=== PATIENT | female | born 1995 | race Caucasian/White ===

== ENCOUNTER 2023-04-29 09:06 | Outpatient (CLI) | payer OTHER, SELFPAY ==
--- NOTE | 2023-04-29 09:15 | CRLHL7_ITS ---
For Patients: As a result of the Century Cures Act, medical imaging exams and procedure reports are released immediately into your electronic medical record. You may view this report before your referring provider. If you have questions, please contact your health care provider. INDICATION: First trimester scan, establish dates. COMPARISON: None. TECHNIQUE: Real-time rodriguez-scale imaging of the pelvis was performed. FINDINGS: Sonographic imaging demonstrates a single living intrauterine gestation. The embryo demonstrates a regular cardiac rate measuring 169 beats per minute. The embryo`s crown-rump length measurement of 2.0 cm corresponds to a gestational age of 8 weeks 5 days with a sonographic due date of 12/04/2023. There is a normal-appearing yolk sac. There are no gross abnormalities noted within the embryo at this early state of development. The gestational sac has a normal appearance. There is no evidence of a perigestational hemorrhage. The amount of fluid within the sac appears appropriate for gestational age. The cervix is closed. The myometrium appears normal. The ovaries are of normal size. Corpus luteal cyst right ovary measuring 1.4 cm. There are no suspicious fluid collections noted in the cul-de-sac. IMPRESSION: Normal first trimester OB ultrasound exam. Gestational age calculated at 8 weeks 5 days with a sonographic due date of 12/04/2023. Dictated by Raimundo Villalta MD @ 04/29/2023 10:36:30 AM (Electronically Signed)
== END 2023-04-29 09:07 | disposition home or self-care (01) ==
PROVIDERS: Visit Provider Advanced Practice Midwife
DX: Z34.91 Encounter for supervision of normal pregnancy, unspecified, first trimester (principal); Z3A.08 8 weeks gestation of pregnancy
CPT/HCPCS: 76817

== ENCOUNTER 2023-04-29 10:34 | Outpatient (CLI) | payer OTHER, SELFPAY ==
[2023-04-29 16:17] LABS: Chlamydia DNA Amplified* NOT DETECTED (No Detected); GC DNA Amplified* NOT DETECTED (No Detected)
== END 2023-04-29 10:35 | disposition home or self-care (01) ==
PROVIDERS: Visit Provider Advanced Practice Midwife
DX: Z34.91 Encounter for supervision of normal pregnancy, unspecified, first trimester (principal); Z3A.08 8 weeks gestation of pregnancy
CPT/HCPCS: 86592; 86703; 86704; 86706; 86762; 86787; 86803; 86850; 86900; 86901; 87086; 87186; 87340; 87491; 87591

== ENCOUNTER 2023-07-20 12:55 | Outpatient (CLI) | payer OTHER, SELFPAY ==
--- NOTE | 2023-07-20 13:00 | US_ITS ---
Patient: SMITHA KUMAR Facility:?[facility] Patient ID:?[id number] Site Patient ID:?[id number]. Site :?[id number] Study:?US-OB Pelvis anatomy-07/20/2023 2:08:57 PM Ordering Physician:FELICITA Final Report: INDICATION: Evaluate anatomy. COMPARISON: none TECHNIQUE: Real time rodriguez scale imaging of the fetus was performed as well as color Doppler analysis of the umbilical vessels. FINDINGS: Sonographic imaging demonstrates a single living intrauterine gestation. Fetus demonstrates a regular cardiac rate of 150 beats per minute. Fetus has a zuhair breech position. The placenta lies posterior fundal without evidence of placenta previa. Placental edge is 6.8 cm from the internal cervical os. Amniotic fluid volume appears normal. Single deepest vertical pocket: 5.2 cm. The cervix is closed and measures 3.9 cm in length. The composite ultrasound gestational age is calculated at 20 weeks 4 days with an estimated sonographic due date of 12/03/2023. The estimated weight is 389 grams which lies at the 87th %. The following biometric measurements were obtained: Biparietal diameter: 4.5 cm/19 weeks 3 days 23rd% Head circumference: 17.7 cm/20 weeks 1 day 44th% Abdominal circumference: 16.1 cm/21 weeks 1 day 78th% Femur length: 3.5 cm/21 weeks 0 days 72nd% The HC/AC ratio measures: 1.10 range (1.07-1.25) On anatomic survey, there is a normal appearance of the cerebral ventricles, cavum septi pellucidi, cisterna magna and cerebellum. The nose, lips, and facial profile appear normal. The cervical, thoracic and lumbar spine are well visualized and appear normal. There is a normal four-chamber heart view and the left and right ventricular outflow tracts appear normal. The diaphragm and stomach appear normal. The kidneys and bladder also appear normal. There is a normal three-vessel cord and cord insertion site. The four extremities appear normal. IMPRESSION: Normal OB ultrasound exam with concordance of clinical and sonographic dating. No intrinsic abnormalities noted on anatomic survey. Dictated by Raimundo Villalta MD @ 07/21/2023 9:32:39 AM Signed by:?Raimundo Villalta MD @07/21/2023 9:32:39 AM (Electronic Signature)
== END 2023-07-20 12:56 | disposition home or self-care (01) ==
LOC: US 12:55
PROVIDERS: Visit Provider Obstetrics & Gynecology
DX: Z34.92 Encounter for supervision of normal pregnancy, unspecified, second trimester (principal); Z3A.20 20 weeks gestation of pregnancy
CPT/HCPCS: 76805

== ENCOUNTER 2023-09-13 13:52 | Outpatient (CLI) | payer MEDICAID, SELFPAY | END 2023-09-13 13:53 | disposition home or self-care (01) | LOC: NFLDREF 09-29 11:10 | PROVIDERS: Visit Provider Obstetrics & Gynecology | DX: Z34.93 Encounter for supervision of normal pregnancy, unspecified, third trimester (principal); Z3A.28 28 weeks gestation of pregnancy | CPT/HCPCS: 86592 ==

== ENCOUNTER 2023-09-27 13:55 | Outpatient (CLI) | payer MEDICAID, SELFPAY ==
--- NOTE | 2023-09-27 14:00 | CRLHL7_ITS ---
For Patients: As a result of the Century Cures Act, medical imaging exams and procedure reports are released immediately into your electronic medical record. You may view this report before your referring provider. If you have questions, please contact your health care provider. OB ULTRASOUND ANDREA by LMP: 12/06/2023. GA: 30w, 0d. Single. INDICATION: Uterine size-date discrepancy. COMPARISON: 07/20/2023. CERVIX: Not visualized. POSITIONING: Vertex. AMNIOTIC FLUID: 3.9 cm. PLACENTA: Technique: Transabdominal. PLACENTA POSITION: Anterior. DOPPLER: heart rate: 165 bpm. Biometry: BPD: 76 cm. 30 w, 3 d, 50%. HC: 27.5 cm. 30 w, 0 d, 17%. AC: 25.7 cm. 29 w, 6 d, 40%. FL: 5.9 cm. 30 w, 5 d, 57%. FL/AC ratio: 22.96 percent. HC/AC ratio: 1.07. EFW: 1533 g. Weight: 3 lbs, 6 oz. age by this US: 30 w, 2 d. ANDREA by this US: 12/04/2023. Percentile by ANDREA: 44%. IMPRESSION: Measurements are consistent with dates. Good interval growth since the prior exam. Aashish Goins M.D. Body/Diagnostic Radiologist [email or web address] DWAYNE/ruth miranda/Dictated by: Aashish Goins MD @ 09/28/2023 9:34:00 AM (Electronically Signed)
== END 2023-09-27 13:56 | disposition home or self-care (01) ==
PROVIDERS: Visit Provider Obstetrics & Gynecology
DX: O26.843 Uterine size-date discrepancy, third trimester (principal); Z3A.30 30 weeks gestation of pregnancy
CPT/HCPCS: 76816

== ENCOUNTER 2023-10-25 14:18 | Outpatient (CLI) | payer MEDICAID, SELFPAY | END 2023-10-25 14:19 | disposition home or self-care (01) | LOC: NFLDREF 10-28 08:46 | PROVIDERS: Visit Provider Obstetrics & Gynecology | DX: Z34.93 Encounter for supervision of normal pregnancy, unspecified, third trimester (principal); O99.013 Anemia complicating pregnancy, third trimester; Z3A.34 34 weeks gestation of pregnancy | CPT/HCPCS: 82728 ==

== ENCOUNTER 2023-11-10 10:20 | Outpatient (CLI) | payer MEDICAID, SELFPAY ==
[2023-11-11 12:56] LABS: Strep B DNA Probe Negative (Negative)
[2023-11-11 12:59] LABS: Strep B Susceptibility Needed? No
== END 2023-11-10 10:21 | disposition home or self-care (01) ==
LOC: NFLDREF 10:20
PROVIDERS: Visit Provider Obstetrics & Gynecology
DX: Z34.93 Encounter for supervision of normal pregnancy, unspecified, third trimester (principal); Z3A.36 36 weeks gestation of pregnancy
CPT/HCPCS: 87081; 87653

== ENCOUNTER 2023-11-22 13:30 | Outpatient (RCR) | payer MEDICAID, SELFPAY ==
--- NOTE | 2023-11-01 11:38 | PC.NURSE ---
Diagnosis: MATILDE of
--- NOTE | 2023-11-01 12:00 | URNOTE ---
Prior auth is not required for Yenny ([id number]) per [facility] fee schedule.
[2023-11-08 11:23] VITALS: BP 123/74; PULSE 111; RESP 16; TEMP 36.6; O2SAT 97
[2023-11-08] MEDS: IRON SUCROSE COMPLEX 200 MG in 0.9 % SODIUM CHLORIDE 100 ml 100 ML 440 MG IVPB (12:00)
[2023-11-08] MEDS: 0.9 % SODIUM CHLORIDE 250 ml IV (12:03)
[2023-11-08] MEDS: SODIUM CHLORIDE 0.9 % (FLUSH) 10 ML SYRINGE IVF (12:04)
[2023-11-08 12:20] VITALS: BP 107/59; PULSE 103; RESP 16; TEMP 36.6; O2SAT 97
[2023-11-08 12:45] VITALS: BP 119/69; PULSE 94; RESP 16; TEMP 36.7; O2SAT 97
[2023-11-11 13:35] VITALS: BP 107/71; PULSE 97; RESP 16; TEMP 36.3; O2SAT 97
[2023-11-11] MEDS: SODIUM CHLORIDE 0.9 % (FLUSH) 10 ML SYRINGE IVF (13:42)
[2023-11-11] MEDS: 0.9 % SODIUM CHLORIDE 250 ml IV (13:44)
[2023-11-11] MEDS: IRON SUCROSE COMPLEX 200 MG in 0.9 % SODIUM CHLORIDE 100 ml 100 ML 440 MG IVPB (13:53)
[2023-11-11 14:10] VITALS: BP 108/69; PULSE 90; RESP 16; O2SAT 97
[2023-11-11 14:40] VITALS: BP 118/75; PULSE 89; RESP 16; TEMP 36.4; O2SAT 97
[2023-11-15 13:48] VITALS: BP 106/68; PULSE 99; RESP 16; TEMP 36.4; O2SAT 99
[2023-11-15] MEDS: IRON SUCROSE COMPLEX 200 MG in 0.9 % SODIUM CHLORIDE 100 ml 100 ML 440 MG IVPB (14:11)
[2023-11-15] MEDS: SODIUM CHLORIDE 0.9 % (FLUSH) 10 ML SYRINGE IVF (14:11)
[2023-11-15] MEDS: 0.9 % SODIUM CHLORIDE 250 ml IV (14:11)
[2023-11-15 14:53] VITALS: BP 100/66; PULSE 74; RESP 14; TEMP 36.1; O2SAT 100
[2023-11-18 11:47] VITALS: BP 111/68; PULSE 95; RESP 16; TEMP 36.2; O2SAT 97
[2023-11-18] MEDS: IRON SUCROSE COMPLEX 200 MG in 0.9 % SODIUM CHLORIDE 100 ml 100 ML 440 MG IVPB (12:11)
[2023-11-18] MEDS: SODIUM CHLORIDE 0.9 % (FLUSH) 10 ML SYRINGE IVF (12:11)
[2023-11-18] MEDS: 0.9 % SODIUM CHLORIDE 250 ml IV (12:11)
[2023-11-18 12:26] VITALS: BP 110/66; PULSE 92; RESP 14; TEMP 36.4; O2SAT 99
[2023-11-18 13:00] VITALS: BP 99/64; PULSE 92; RESP 16; TEMP 37.2; O2SAT 97
[2023-11-22 13:44] VITALS: BP 119/73; PULSE 114; RESP 16; TEMP 36.6; O2SAT 97
[2023-11-22] MEDS: SODIUM CHLORIDE 0.9 % (FLUSH) 10 ML SYRINGE IVF (14:14)
[2023-11-22] MEDS: IRON SUCROSE COMPLEX 200 MG in 0.9 % SODIUM CHLORIDE 100 ml 100 ML 440 MG IVPB (14:14)
[2023-11-22] MEDS: 0.9 % SODIUM CHLORIDE 250 ml IV (14:14)
[2023-11-22 14:31] VITALS: BP 112/68; PULSE 95; RESP 18; TEMP 36.4; O2SAT 97
[2023-11-22 14:59] VITALS: BP 118/67; PULSE 95; RESP 16; TEMP 37; O2SAT 97
== END 2024-05-06 23:59 | disposition home or self-care (01) ==
LOC: CCIC 13:30
PROVIDERS: Visit Provider Clinical Nurse Specialist
DX: O99.019 Anemia complicating pregnancy, unspecified trimester (principal); D50.9 Iron deficiency anemia, unspecified
CPT/HCPCS: 96365; 96374; J1756; J7050

== ENCOUNTER 2023-11-26 14:15 | Inpatient (IN) | payer MEDICAID, SELFPAY ==
[2023-11-26] VITALS (26 sets, daily range): BP systolic 90–122; BP diastolic 51–70; PULSE 76–101; RESP 16–20; TEMP 36.3–36.8; O2SAT 97–100; BMI 33.2
--- NOTE | 2023-11-26 14:45 | P.LDBA_ITS ---
Subjective History of Present Illness Time Seen by Provider: 14:45 Date Seen: 11/26/23 Narrative: Patient is being admitted to Labor and Delivery for spontaneous labor. She is a 28 year old at 38.4 weeks gestation. Her full history and physical was dictated by Dr. Caro on 11/18/23. Please see this for details. Patient start having painful contractions around a couple of hours ago and also noted decreased movement. When she presented to the center, she was noted to be 5 cm dilated. Declined TOLAC and continues to desire bilateral salpingectomy at time of delivery. Specific Issues/Plans : Eliu # Asymptomatic bacteruria at NOB, treated # Anemia, 10.8 at 1st OB. * Repeat at 28 weeks: 10.3 * Begin ferrous sulfate 650 mg QOD. * Repeat at 34 weeks: 10.6. Ferritin: 6.1 * Iron infusions to be completed on 11/24/2023 # 2019, arrest of decent, OP & macrosomic (4082 grams at 39.6 weeks) * Likelihood of successful = 61.5% * Operative note available * Planning repeat with bilateral salpingectomy. Scheduled for 12/02/2023 # Undesired fertility. Considering salpingectomy. * Tubal consent form signed 09/13/23 Needs PP pap. Ultrasounds: 04/29/2023: 8 weeks, 5 days gestation with sonographic ANDREA 12/04/2023 07/20/2023: Normal anatomy on level 1 scan. Posterior fundal placenta without previa. Normal fluid. EFW 87%, AC 78% 09/27/23: EFW 44%, AC 40%, all growth parameters within normal ranges TDAP: 09/27/23 GBS negative 11/10/20[address] H[address] Caro 11/18/2023 OB - Problem Based A/P Additional Plan (1) Previous delivery affecting : Problem details: Repeat delivery scheduled Status: Acute (2) Anemia affecting : Status: Acute Plan - CS Consent The patient was consented for section and blood. She understands that the four main categories of risk include pain, bleeding, infection, and damage to surrounding structures. Intraoperative pain will be manage with spinal anesthesia or epidural anesthesia. She has a history of high spinal from her previous delivery. She is willing to the try another spinal for this surgery. If that those are not effective or not appropriate for the clinical situation, general anesthesia will be administered. Immediately postop, TAP b lock will be performed. Throughout her recovery course, she will have on PO pain medications such as ibuprofen, Tylenol, and oxycodone. Regarding infection, she understands that we will be delivering appropriate antibiotics, however that the risk of infection following section still is approximately 5%. She understands that though the risk is very low that there is always a risk of damage to the bladder, uterus, ovaries, fallopian tubes, bowels, ureters, or even the fetus. She understands that most injuries can be addressed at the time of surgery, however, such an injury may require additional surgeries to fix. She understands that a section carries a risk of bleeding, and that while this bleeding can be addressed with multiple medical and surgical modalities (including hysterectomy), that there is the possibility of needing a blood transfusion. She reports she would accept a blood transfusion understanding the risks of a 1/200,000 risk of Hepatitis and 1/2,000,000 risk of HIV as well as the risk of having an allergic reaction to the blood products. She further understands that this reaction is typically mild, however can be severe including respiratory distress and necessitating ICU-level care. Lastly, she understands that a section does increase risks for future pregnancies and deliveries including, but not limited to, the risk of uterine rupture or placenta accreta. - CBC and T&S drawn. - Plan: Will proceed with repeat delivery and bilateral salpingectomy NST: 140s bpm, moderate variability, multiple accelerations, few small variable decelerations that spontaneously resolve [place]: Q4 minutes contractions. OB Exam Physical Exam Vital signs: Temp Pulse BP Pulse Ox 98.2 F 99 122/68 98 11/26/23 13:59 11/26/23 13:59 11/26/23 13:59 11/26/23 13:58 Narrative: Physical exam: General: Mild distress during contractions. Psych: Alert and oriented x3, full affect HEENT: Normocephalic, atraumatic Lungs: Unlabored breathing in between contractions. Neuro: No focal deficit. Mentating appropriately Pelvic exam: Dry perineum. 5/90/-1. Bulging membrane.
[2023-11-26 14:54] LABS: Basophils Percent Auto 0.2 % (0.0-3.0); Eosinophils Percent Auto 1.3 % (0.0-7.0); Hematocrit 34.6 % (33.0-51.0); Hemoglobin* 10.9 gm/dL (12.0-16.0); Immature Granulocytes Pct Auto 0.9 %; Lymphocytes Percent Auto 20.2 % (20-44); Mean Corpuscular HGB Conc 32 gm/dL (32-36); Mean Corpuscular Hemoglobin 31 pg (26-34); Mean Corpuscular Volume 97 fL (80-100); Monocytes Percent Auto 10.4 % (0.0-11.0); Platelet Count* 336 K/uL (140-440); RDW Coefficient of Variation % 15.8 % (11.5-15.5); Red Blood Count 3.56 m/uL (4.00-5.20); White Blood Count* 13.69 K/uL (4.50-11.00)
[2023-11-26 15:00] LABS: Slide Review Reflex No
[2023-11-26] MEDS: CEFAZOLIN 2 GM INJ IVP (15:11)
--- NOTE | 2023-11-26 15:22 | P.ANES_ITS ---
Anesthesia Charges Start Date/Time Anesthesia Start Date: 11/26/23 Anesthesia Start Time: 15:01 Stop Date/Time Anesthesia Stop Date: 11/26/23 Anesthesia Stop Time: 16:54 Summary Emergency: UNDER TRIMMER
[2023-11-26 15:45] LABS: INR 0.99 (0.91-1.10); Prothrombin Time 13.7 Seconds
[2023-11-26 15:46] LABS: Partial Thromboplastin Time* 31 Seconds (23-33)
[2023-11-26 15:47] LABS: Fibrinogen* 353 mg/dL (200-450)
--- NOTE | 2023-11-26 17:16 | W.PM.NB ---
Nerve Block Nerve Block Time Seen by Provider: 16:50 Date Seen: 11/26/23 Type of block requested by surgeon for post-operative analgesia: TAP Side: bilateral Time out performed: Yes Verification of patient name: Yes Verification of date of : Yes Name of person performing procedure: CSathishJeb Continuous monitoring Was continuous monitoring of O2 sat, B/P, cardiac nurse specialist, recorded every 15 minutes?: Yes Procedure Checklist: sterile prep, needles and gloves Ultrasound guided. Images saved: Yes Medications given in 5ml increments after negative aspiration: Marcaine %: 0.25 mL: 30 Needle gauge: 21 and Exparel mL: 10 Needle gauge: 21 Patient tolerated procedure well: Yes Block Charges Block Charge (with Pro Fee): TAP Bilateral Use of Ultrasound Machine for Block: Yes- US Guidance/pain block
--- NOTE | 2023-11-26 17:42 | PM.OBPRCCS ---
Procedure Time Seen by Provider: 15:15 Date of procedure: 11/26/23 Pre-op diagnosis: 1. Spontaneous labor 2. History of delivery x 1 3. Declined TOLAC 4. Undesired fertility Post-op diagnosis: same Procedure Done: Global Will [facility] bill your pro fee for this procedure?: Yes Urine Output Comment: 300 cc. Clear throughout Procedure Description: DELIVERY BY SECTION Date of Service: 11/26/23 Delivery time: 1530 Summary: Admitted for spontaneous labor at 38.4w. Initial cervical exam in triage was /-1, bulging membrane with regular painful contractions. Repeat exam in the OR was /-1, bulging membrane. Of note, RN and HELP DESK SUPPORT SPECIALIST were concerned about patient's excessive bleeding during IV placement and during spinal anesthesia. HELP DESK SUPPORT SPECIALIST reported loss of 20-25 cc of blood from spinal needle. Coags were sent due to this. Hgb/plt: 10.9/336 INR: 0.99 APTT: 31 Fibrinogen: 353 Findings: Excessive bleeding with every layer during surgery. Fascia densely adhered to the rectus muscle. Dense adhesion omental adhesion to peritoneum. Normal appearing uterus, bilateral ovaries and tubes. Fetus low in the pelvis, direct OP. 8/9 Weight 3373 g. Primary Indication: 1. Spontaneous labor 2. History of delivery x 1 3. Declined TOLAC 4. Undesired fertility Procedures: 1. Repeat Lower uterine transverse section 2. Bilateral salpingectomy Specimens Removed: Placenta Bilateral fallopian tubes Surgeon: Kim Brandon MD Anesthesia: Spinal Report: Prophylactic antibiotic, 2 g of Ancef was given before patient was taken to OR. After arrival to the operating room patient was placed in the supine position with left lateral tilt after administration of spinal anesthesia. Laparotomy A pfannenstiel incision was made through the anterior abdominal wall with #10 scalpel approximately 2 cm above the pubic symphysis. The incision was extended sharply with the #10 scalpel through the subcutaneous tissue to the level of fascia. Patient had more bleeding than expected with skin and subcutaneous layer dissection. The fascia was entered sharply with a #10 scalpel (Pfannenstiel) in the midline and extended in semi-elliptical fashion with Ochoa scissor. The underlying muscles were dissected off the overlying fascia by grasping the superior aspect of fascia with two rc clamps and sharp dissection was used along the midline due to adhesions. The fascia was further from rectus muscle with Ochoa scissor and/or cautery. In similar fashion, the lower aspect of fascia was also grasped with two Rc clamps and both blunt and sharp dissection was used to separate fascia from rectus muscle. Fascia densely adhered to the rectus muscle. The rectus muscles were in the midline sharply with Emily's. The peritoneum was then entered sharply with Emily's and Metzenbaum. The peritoneal incision was then extended superiorly and inferiorly under direct visualization with care being taken to avoid bladder and bowel. Filmy intraabdominal adhesions. The peritoneal incision was enlarged sharply with electrocautery and bluntly by lateral traction from the surgeon's and assistant corporate secretary's hand. Les retractor was inserted into the abdomen. Delivery A bladder flap was developed by grasping with [place] forcep and enter with Metzenbaun scissor. Then sharp and blunt dissection with Metzenbaum scissor and fingers were performed. A low transverse hysterotomy was made then with #10 scalpel at old hysterotomy scar. Of note, patient had excessive bleeding due to large vessel at hysterotomy site with every swipe of the scalpel. Extended laterally and cephalad with fingers in a low transverse fashion with Manu Guillermo technique with care being taken to avoid injury to the fetus. The amniotic cavity (membrane) was then entered with spontaneous rupture of membrane, and the amniotic fluid was noted to be clear, fetus was delivered cephalic. With delivery of the baby, right uterine artery extension noted and clamped with ring forceps. Placenta was delivered spontaneously with steady traction on cord and manual separation of placenta from uterine wall. Closure Uterine cavity was cleaned after placental delivery with lap sponge x 2. The hysterotomy was closed in one layer with stitches using 0 vicryl with continuous locking stitches. Right O'leary stitch placed. There was 2 cm hematoma at the left uterine angle. Ehaawm-gn-nosfl placed on hematoma. Hemostasis was achieved as needed with electrocautery. Xochilt applied at the hysterotomy x 2. The ovaries/tubes/uterine surface were evaluated. They were found to be normal. Attention was then turned stars performing the bilateral salpingectomy. The left fallopian tube was grasped with [place]. The left fallopian tube was removed from the broad ligament using the hand-held LigaSure forceps starting at the fimbriated end of the tube. Sequential pedicles were then formed to the level of the cornua. The tube was then removed at the cornua and handed off. The right fallopian tube was removed in a similar manner. Excellent hemostasis was noted of all pedicles. Les retractor removed and hemostasis was confirmed again. Fascia was closed with running stitches using 0 PDS. Subcutaneous layer was irrigated. Hemostasis was checked and achieved with electrocautery. Afterwards, hemostasis was found to be adequate. The subcutaneous layer was closed with running 2-0 chromic sutures. The skin was closed with 3-0 monocryl subcuticular sutures. The incision was cleaned, exofin applied, and Mepilex dressing placed. The procedure considered terminate at this time. Intraoperative Complications: Intraoperative hemorrhage from excessive bleeding from all layers. Uterus had multiple large perforating vessels. QBL: 1312 cc Uterotonics/hemostatic agent: 40u of pitocin, 1g of TXAx2, Xochilt x 2. Disposition: The patient tolerated the procedure well. She was recovered in Obstetric PACU for close monitoring in stable condition, with a contracted uterus and normal transvaginal bleeding. The infant was sent to mother?s bedside. The placenta was sent to pathology for unscheduled delivery. Fallopian tubes were sent together. Debrief with OR team performed and specimen reviewed at the conclusion of the procedure. Discussed with Rosaline about the teams concern for her excessive bleeding during all phase of care. She reported heavy menstrual bleeding on Nexplanon that would be on going for months. This led to her discontinuing Nexplanon and using depo Provera instead. She was able to achieve amenorrhea with depo Provera. Denies any bleeding from dental or other procedures. Patient consented to further workup with von Willebrand, TSH, and Utox. Pathology: specimen obtained, sent to pathology
[2023-11-26] MEDS: HYDROmorphone 0.5 mg/0.5 ml inj IVP (18:29)
[2023-11-26 18:59] LABS: Amphetamine Screen Urine Negative (Negative); Barbiturate Screen Urine Negative (Negative); Benzodiazepines Screen Urine Negative (Negative); Cannabinoid Screen Urine Negative (Negative); Cocaine Screen Urine Negative (Negative); Methadone Screen Urine Negative (Negative); Methamphetamines Screen Urine Negative (Negative); Opiate Screen Urine Negative (Negative); Oxycodone Screen Urine Negative (Negative); Phencyclidine Screen Urine Negative (Negative); Tricyclic Antidepressant Urine Negative (Negative)
[2023-11-26 19:20] LABS: Basophils Percent Auto 0.2 % (0.0-3.0); Eosinophils Percent Auto 0.6 % (0.0-7.0); Hematocrit 32.4 % (33.0-51.0); Hemoglobin* 10.4 gm/dL (12.0-16.0); Immature Granulocytes Pct Auto 0.3 %; Lymphocytes Percent Auto 13.1 % (20-44); Mean Corpuscular HGB Conc 32 gm/dL (32-36); Mean Corpuscular Hemoglobin 32 pg (26-34); Mean Corpuscular Volume 98 fL (80-100); Neutrophils Percent Auto 77.8 % (42.0-72.0); Platelet Count* 333 K/uL (140-440); RDW Coefficient of Variation % 15.9 % (11.5-15.5); White Blood Count* 18.22 K/uL (4.50-11.00)
[2023-11-26 19:24] LABS: Slide Review Reflex No
[2023-11-26 19:38] LABS: INR 0.99 (0.91-1.10); Prothrombin Time 13.7 Seconds
[2023-11-26 19:39] LABS: Fibrinogen* 327 mg/dL (200-450)
[2023-11-26 19:48] LABS: Partial Thromboplastin Time* 33 Seconds (23-33)
[2023-11-26] MEDS: LACTATED RINGERS 1000 ML 1,000 ML 125 ML IV (20:04)
[2023-11-26] MEDS: ACETAMINOPHEN 500 MG TABLET 1000 MG PO (21:09)
[2023-11-27] VITALS (22 sets, daily range): BP systolic 89–113; BP diastolic 45–70; PULSE 95–109; RESP 16–18; TEMP 36.5–37.2; O2SAT 96–100
[2023-11-27] MEDS: OXYCODONE 5 MG TABLET PO ×5 (00:29→21:37)
[2023-11-27] MEDS: ACETAMINOPHEN 500 MG TABLET 1000 MG PO ×4 (03:17→21:38)
[2023-11-27] MEDS: LACTATED RINGERS 1000 ML 1,000 ML 125 ML IV (04:05)
[2023-11-27 04:17] LABS: Hemoglobin* 9.6 gm/dL (12.0-16.0)
[2023-11-27] MEDS: DOCUSATE SODIUM 100 MG CAPSULE PO (09:40)
[2023-11-27] MEDS: FERROUS SULFATE 325 MG TABLET PO (09:41)
--- NOTE | 2023-11-27 10:47 | PM.OBPNVD1 ---
OB - PN:Subj Subjective Time Seen by Provider: 08:45 Date Seen: 11/27/23 Narrative: Overnight patient had no complaints. Her pain is well controlled with oral pain medications. She only needed one dose of 0.5 mg of IV Dilaudid after surgery due to holding NSAIDs until her bleeding is more reassuring. She is tolerating a regular diet. She has not passed flatus. She is not yet ambulating without difficulty. Lochia is scant. She is urinating with andre - 300 cc in bag this AM - clear yellow urine. Patient denies chest pain, SOB, n/v, headache, RUQ pain, vision changes, dizziness. OB - PN: Obj Exam Physical Exam: Vital signs: Temp Pulse Resp BP Pulse Ox O2 Del Method 99.0 F 101 H 16 89/45 L 97 Room Air 11/27/23 09:09 11/27/23 09:09 11/27/23 09:09 11/27/23 09:09 11/27/23 09:09 11/27/23 09:09 Narrative: Physical exam: General: No acute distress Psych: Alert and oriented x4, full affect HEENT: Normocephalic, atraumatic Neck: No cervical adenopathy, no thyromegaly Heart: Regular rate and rhythm, no murmur rub or gallop Lungs: Clear to auscultation bilaterally Abdomen: Normoactive bowel sounds, soft, no tenderness, rebound, or guarding. Incision: Appropriately tender to palpation. Dressing Clean, dry, and intact. Skin: No lesions or rashes Lower extremities: Trace bilateral lower extremity edema Pelvic exam: Scant blood on pad Urinary Catheter Management: Urethral: Cath placed during this visit: yes, but has since been removed by the nurse Reason for continuing: decision to DC catheter Insertion date: 11/26/23 Insertion time: 15:12 Removal date: 11/27/23 Removal time: 09:21 OB - PN: Obj Data Labs Labs: Laboratory Results - last 24 hr 11/26/23 11/26/23 11/26/23 14:39 15:30 18:35 WBC 13.69 H RBC 3.56 L Hgb 10.9 L Hct 34.6 MCV 97 MCH 31 MCHC 32 RDW Coeff of [place] 15.8 H Plt Count 336 Neut % (Auto) 67.0 Lymph % (Auto) 20.2 [place] % (Auto) 10.4 Eos % (Auto) 1.3 Baso % (Auto) 0.2 Neut # (Auto) 9.20 H Lymph # (Auto) 2.80 [place] # (Auto) 1.40 H Eos # (Auto) 0.20 Baso # (Auto) 0.00 Abs Immat Gran (auto) 0.10 Imm/Tot Granulo (auto) 0.9 INR 0.99 APTT 31 Fibrinogen 353 TSH Urine Opiates Screen Negative Ur Oxycodone Screen Negative Urine Methadone Screen Negative Ur Barbiturates Screen Negative U Tricyclic Antidepress Negative Ur Phencyclidine Scrn Negative Ur Amphetamines Screen Negative U Methamphetamines Scrn Negative U Benzodiazepines Scrn Negative Urine Cocaine Screen Negative U Marijuana (THC) Screen Negative Ur Drug Screen Comment See Note Blood Type A Positive Antibody Screen NEGATIVE 11/26/23 11/27/23 19:12 04:05 WBC 18.22 H RBC 3.30 L Hgb 10.4 L 9.6 L Hct 32.4 L MCV 98 MCH 32 MCHC 32 RDW Coeff of [place] 15.9 H Plt Count 333 Neut % (Auto) 77.8 H Lymph % (Auto) 13.1 L [place] % (Auto) 8.0 Eos % (Auto) 0.6 Baso % (Auto) 0.2 Neut # (Auto) 14.20 H Lymph # (Auto) 2.40 [place] # (Auto) 1.50 H Eos # (Auto) 0.10 Baso # (Auto) 0.00 Abs Immat Gran (auto) 0.10 Imm/Tot Granulo (auto) 0.3 INR 0.99 APTT 33 Fibrinogen 327 TSH 2.170 Urine Opiates Screen Ur Oxycodone Screen Urine Methadone Screen Ur Barbiturates Screen U Tricyclic Antidepress Ur Phencyclidine Scrn Ur Amphetamines Screen U Methamphetamines Scrn U Benzodiazepines Scrn Urine Cocaine Screen U Marijuana (THC) Screen Ur Drug Screen Comment Blood Type Antibody Screen OB - PN: A/P Delivery Assessment and Plan (1) Previous delivery affecting : Problem details: Repeat delivery scheduled Status: Acute (2) Anemia affecting : Status: Acute Plan Postoperative/post delivery Review: - Admitted for: Spontaneous labor - Surgical procedure: Repeat section with bilateral salpingectomy - Skin incision: Pfannenstiel - Closure: Sutures - Quantitative blood loss: 1312 mL - Intraoperative Complications: Intraop hemorrhage Acute blood loss anemia - patient is currently asymptomatic - BP overnight: BP on the lower side but with in her history baseline 90s-100s/40-60s - HR wnl. - Urine output: 0.89 mL/kg/hr - Preop/pre delivery Hgb/plt: 10.9/336 - Postop/post delivery Hgb/plt: 10.4/336 --> 9.6 this AM - Plan: PO iron Postoperative care: - Diet: Advance as tolerated - Fluid: Encourage oral intake - Activity: Encourage ambulation and incentive spirometry - Pain: Acetaminophen, Ibuprofen, and oxycodone - DVT prophylaxis: SCDs and TEDs when not ambulating. Ppx Lovenox while inpateint Discharge Planning - Contraception: s/p bilateral salpingectomy - Follow Up: follow-up at 2 weeks and 6 weeks in clinic Baby's Status - Fetus: 8, 9 - 7lb 7oz - Female - Location: Bedside Dispo: Patient is POD#1. Need the following milestones: D/c andre cath, ambulate without assist. Anticipate discharge POD#2.
[2023-11-27] MEDS: IBUPROFEN 600 MG TABLET PO (16:57)
[2023-11-27] MEDS: ENOXAPARIN 40 MG/0.4 ML INJ SUBCUT (16:57)
[2023-11-28] MEDS: IBUPROFEN 600 MG TABLET PO ×2 (02:03→08:12)
[2023-11-28] MEDS: OXYCODONE 5 MG TABLET PO ×2 (02:04→06:15)
[2023-11-28 02:38] VITALS: BP 106/61; PULSE 102; RESP 16; TEMP 36.5; O2SAT 98
[2023-11-28] MEDS: ACETAMINOPHEN 500 MG TABLET 1000 MG PO (03:51)
--- NOTE | 2023-11-28 06:12 | PM.ANPOST ---
Post Anesthesia Note Post Anesthesia Note Patient seen: Inpatient Respiratory Status: adequate Cardiovascular Status: adequate Mental Status: baseline Pain: adequate Temp: baseline Anesthetic awareness: N/A Complications: none Follow care: none
[2023-11-28 08:08] VITALS: BP 110/72; PULSE 94; RESP 16; TEMP 36.8; O2SAT 97
[2023-11-28] MEDS: DOCUSATE SODIUM 100 MG CAPSULE PO (08:12)
[2023-11-28] MEDS: FERROUS SULFATE 325 MG TABLET PO (08:12)
--- NOTE | 2023-11-28 11:19 | PM.OBDSVD1 ---
DS: Providers Provider Date Seen: 11/28/23 Date of admission: 11/26/23 14:15 Primary care physician: Not a Local Provider Admitting Clinician: Kim Brandon MD Attending Physician on discharge: Pebbles Hernández CNM Date of Discharge: 11/28/23 DS: Diagnosis Discharge Diagnosis (1) care following delivery: Status: Acute (2) care and examination immediately after delivery: Status: Acute (3) Lactating mother: Status: Acute Exam Narrative: Exam Narrative: VSS. ?AfebrileGENERAL APPEARANCE: ?normal affect, alert, no distress MOOD: ?appropriate HEENT: normocephalic, neck supple, full ROM CHEST: ?Symmetrical chest wall movement. ?Normal respiratory effort. ?Clear to auscultation HEART: ?regular rate and rhythm ABDOMEN: ?soft, non-tender. Uterine fundus is firm, at Umbilicus, Midline and is appropriate for the stage of recovery. ?Bowel sounds present. EXTREMITIES: ?normal and no edema SKIN: warm, dry. ? ?Incision clean/dry/well approximated. ?No signs of infection noted. Const: Vital Signs, click to edit/add: Vital Signs - 24 hr 11/27/23 11:46 11/27/23 12:00 11/27/23 13:00 Temperature 98.1 F Pulse Rate [Pulse Oximeter] 103 H Respiratory Rate 16 16 16 Blood Pressure [Ri ght Arm] 96/53 L Pulse Oximetry 97 Oxygen Delivery Me thod Room Air 11/27/23 14:00 11/27/23 15:00 11/27/23 15:15 Temperature 98.2 F Pulse Rate [Pulse Oximeter] 109 H Respiratory Rate 16 16 16 Blood Pressure [Ri ght Arm] 113/70 Pulse Oximetry 98 Oxygen Delivery Me thod Room Air 11/27/23 21:41 11/28/23 02:38 11/28/23 08:08 Temperature 98.1 F 97.7 F 98.2 F Pulse Rate [Pulse Oximeter] 95 102 H 94 Respiratory Rate 16 16 16 Blood Pressure [Ri ght Arm] 106/66 106/61 110/72 Pulse Oximetry 96 98 97 Oxygen Delivery Me thod Room Air Room Air Room Air Documenting provider has reviewed patient's vital signs: yes OB - DS: Summary Hospital Course Hospital Course: Rosaline is a 28 y.o. who was admitted to [facility] for spontaneous labor desiring a repeat C/S. ?She had an uncomplicated .?The patient feels well. ?The pain is well controlled with current medications. ?She has no new complaints. ?She is breast feeding and reports things are improving, she is supplementing with donor milk and does not think her milk is coming in yet.? the patient has done well.? Vitals have been stable.? She has remained afebrile.? Has a good appetite, is tolerating a general diet. ?She is voiding without difficulty.? She is passing small amounts of gas and has not had a bowel movement.? She is ambulating and denies any dizziness.? Has Small amount of rubra lochia. ?She is planning to not use control. Peripartum Data Infant delivery method: Repeat Section Procedures: Procedures Operation Date: 11/26/23 15:15 Actual Procedure Side Surgeon p repeat section, bilateral salpingectomy Kim Junior Brandon MD Infant Gender: Female Infant Discharge Plan: Home Status at Discharge Functional status at discharge: independent ambulation Overall status at discharge: patient is progressing back to baseline Time Spent with Patient Time attestation: Total time spent providing and/or coordinating discharge services: Time spent: Less than 30 minutes Discharge Plan Discharge Disposition: Home, Self-Care Date of Admission: 11/26/23 14:15 Attending Provider on Discharge: Pebbles Hernández Primary Care Provider: Provider,Not a Local Condition: Stable Anticipated Discharge Date/Time: 11/28/23 12:00 Discharge Medications: New acetaminophen 500 mg Tablet 1,000 mg PO Q6H PRN (Reason: Pain) Qty: 0 0RF ferrous sulfate 325 mg (65 mg iron) Tablet 325 mg PO DAILYWM Qty: 30 0RF docusate sodium 100 mg Capsule 100 mg PO DAILY Qty: 90 2RF ibuprofen 600 mg Tablet 600 mg PO Q6H PRN (Reason: Pain) Qty: 60 0RF oxycodone 5 mg Tablet 5 - 10 mg PO Q4H PRN (Reason: Pain) Qty: 10 0RF Discharge Orders: Discharge Order (Routine); Ordered 11/28/23 Ordered By: Pebbles Hernández Patient Education: OB Over the Counter Medication Information, OB /Breast Feeding Additional Instructions: Discharge instructions were reviewed with the patient including signs and symptoms of infection and home going medications Lifting Restrictions: 20 pounds for 6 weeks No not submerge incision under water X 2 weeks? Nothing vaginally for 6 weeks: no tampons or intercourse Do not drive while taking narcotic pain medication(s) Off Work or School for 6 weeks 2-week visit: incision check, discuss feeding concerns, review control options and screen for anxiety/depression. 6-week visit for an annual exam. consultation services are available to all mothers and babies for the first year after delivery.? To make an appointment, please call [phone]. Activity Level: Activity as Tolerated Discharge Diet: Regular Follow Up Appointments: Provider,Not a Local [Primary Care Provider[facility] - [facility] [Provider Group] Forms: Awareness Card Info Instructions
[2023-11-29 16:10] LABS: Rapid Plasma Reagin (RPR) Non Reactive (Non Reactive)
[2023-11-30 09:50] LABS: von WillebrandFactorAntigen 229 % (52-214); vonWillebrandFactorActivityRCF 215 % (51-215)
== END 2023-11-28 14:35 | disposition home or self-care (01) | DRG 784 ==
LOC: OB OUT 14:30 → OB 14:30
PROVIDERS: Admitting Provider Obstetrics & Gynecology; Visit Provider Obstetrics & Gynecology
PROC: 10D00Z1 Extraction of Products of Conception, Low, Open Approach (ICD-10-PCS; CPT 59514; principal; 2023-11-26 15:00)
DX: O34.211 Maternal care for low transverse scar from previous cesarean delivery (principal); D62 Acute posthemorrhagic anemia; O36.8130 Decreased fetal movements, third trimester, not applicable or unspecified; O99.02 Anemia complicating childbirth; O67.8 Other intrapartum hemorrhage; G89.18 Other acute postprocedural pain; O99.892 Other specified diseases and conditions complicating childbirth; N73.6 Female pelvic peritoneal adhesions (postinfective); Z3A.38 38 weeks gestation of pregnancy; Z30.2 Encounter for sterilization; Z37.0 Single live birth
CPT/HCPCS: 01961; 36415; 64488; 76942; 80306; 84443; 85018; 85025; 85240; 85245; 85246; 85384; 85610; 85730; 86592; 86850; 86900; 86901; 88302; 88307; 99140; A9270; C9290; J0665; J0690; J1170; J1650; J2250; J2274; J2371; J2405; J2590; J3010; J7120

== ENCOUNTER 2023-12-01 21:03 | Emergency (ER) | payer MEDICAID, SELFPAY ==
[2023-12-01 21:10] VITALS: BP 115/73; PULSE 76; RESP 16; TEMP 36.4; O2SAT 99; BMI 32.3
--- OUTSIDE RECORDS SUMMARY | 2023-12-01 22:01 | XMS_ITS | Patient Health Record ---
Author Organization [facility] Address [address] [place] [address] Care Team Providers Care Cap Coverer Name Role Phone None, No PCP Primary Care Provider Phill Mederos Unavailable [phone] Allergies No Known Allergies Reason For Referral No Information Social History Tobacco Use: Social History Observation Description Date Details (start date - stop date) Never Smoker NA - NA Tobacco Use/Smoking Question Answer Notes Are you a nonsmoker Problems Problem Type SNOMED Code ICD Code Onset Dates Problem Status W/U Status Risk Notes Problem Anovulation (05369337) Anovulation (N97.0) Active confirmed Plan Of Treatment No Information Insurance Providers Payer Name Payer Address Payer Phone Subscriber Number Group Number Insured Name Patient Relationship to Insured Coverage Start Date Coverage End Date [employer] 2021 MARIA E (CLIENT bill) [address] [place], [place] [id number] Rosaline Parker Self - patient is the insured Medical (General) History Surgical History Surgery Date(Month/Year) section 2018
--- NOTE | 2023-12-01 22:47 | CRLHL7_ITS ---
For Patients: As a result of the Century Cures Act, medical imaging exams and procedure reports are released immediately into your electronic medical record. You may view this report before your referring provider. If you have questions, please contact your health care provider. INDICATION: Leg pain and swelling. TECHNIQUE: Ultrasound venous duplex lower right extremity. Compression venous exam was performed using rodriguez-scale, color Doppler, and spectral Doppler analysis. COMPARISON: None. FINDINGS: Deep veins: Sonographic imaging demonstrates the right common femoral, deep femoral, superficial femoral, popliteal, posterior tibial, and the contralateral left common femoral veins to be fully compressible with normal color Doppler blood flow. Superficial veins: Greater saphenous vein is fully compressible. No popliteal cyst. IMPRESSION: No sign of deep venous thrombosis in the right lower extremity. Dictated by Mark Calle MD @ 12/02/2023 12:33:19 AM (Electronically Signed)
[2023-12-01 22:55] VITALS: BP 120/71; PULSE 78; RESP 16; O2SAT 98
[2023-12-01 23:00] VITALS: BP 120/71; PULSE 78; RESP 16; O2SAT 98
--- NOTE | 2023-12-01 23:17 | ED_ITS ---
HPI - General Adult General Date Seen: 12/01/23 Chief complaint: Lower Extremity Swelling Stated complaint: swelling in R leg, 5 days Time Seen by Provider: 12/01/23 21:15 Source: patient Mode of arrival: ambulatory Limitations: no limitations History of Present Illness HPI narrative: Patient is a 28-year-old female who is five days following a C- section. She comes in because of asymmetric swelling involving her right calf. There has been no redness. No significant tenderness. The swelling is most notable when she stands. There is no family history of blood clot and no personal history of blood clot. She was not anticoagulated after her . She is pumping and bottle feeding breast milk. No chest pains or shortness of breath. Related Data Previous Rx's ?Medication ?Instructions ?Recorded docusate sodium 100 mg capsule 100 mg PO DAILY #90 caps 11/28/23 ferrous sulfate 325 mg (65 mg 325 mg PO DAILYWM #30 tabs 11/28/23 iron) tablet ibuprofen 600 mg tablet 600 mg PO Q6H PRN Pain #60 tabs 11/28/23 oxycodone 5 mg tablet 5 - 10 mg (1 - 2 x 5 mg) PO Q4H 11/28/23 PRN Pain #10 tabs Allergies Allergy/AdvReac Type Severity Reaction Status Date / Time No Known Drug Allergies Allergy Verified 11/25/23 14:11 Review of Systems Narrative: Review of systems is outlined above otherwise noted to be negative. PFSH PFSH Surgical History Hx of section ?Z98.891 - History of uterine scar from previous surgery (ICD-10) Social History Narrative: Lives in [place] with and son. SOCIAL? ? Education: Senior in high school, did not graduate. ? ? Work: cashier courtesy booth? ? Partner: Eliu, , lead pharmacy technician ? ? Lives with: Eliu, son. Her brother rents the downstairs. Pets: 2 cats, dogs? ? Abuse: Denies past. Unable to assess current, partner present? ? Special Diet: Denies? ? Ok with a blood transfusion: yes? ? Culture or gnosticism beliefs: denies? RISK FACTORS? ? Exercise Times/wk: denies? ? Depression/Anxiety: denies? ? Previous Treatments NA Therapy NA PATRICIA: 7 PHQ 9: 6? ? Seat Belt Use: Routinely ? Smoking: Denies past/present? ? Alcohol/day: Denies while ? ? Caffeine: denies? ? Drug Use: Denies past/present? What is your current living situation?: I presently have a place to live Problems where you live: no known problems In the past 12 months, utilities in danger of being shut off: no In past 12 months, lack of transportation kept you from medical appts, meetings, work, or getting things needed for daily living: no In the past 12 mos, have been you worried that your food would run out before you had money to buy more?: never true In the past 12 mos, the food you bought just didn't last and you didn't have money to buy more?: never true Smoking Status: Former smoker How often do you have a drink containing alcohol: never AUDIT-C Alcohol total score: 0 Non-prescribed substance use: denies use How often does anyone, including family, friends and others, physically hurt you : never How often does anyone, including family, friends and others, insult or talk down to you: never How often does anyone, including family, friends and others, threaten you with harm: never How often does anyone, including family, friends and others, scream or curse at you: never Little interest or pleasure in doing things: several days Feeling down, depressed, or hopeless: several days Exam Narrative: Exam Narrative: Vitals noted. HEENT: Conjunctiva clear. Neck is supple without adenopathy, thyromegaly. Lungs: Clear to auscultation in all hillman. No wheezes, rales, rhonchi. Heart: Regular rate and rhythm without murmur. Abdomen: Soft and nontender. No guarding, rigidity, rebound. Bowel sounds are normal. No palpable masses. Extremities: She has one to 2+ pitting edema bilaterally. This is a bit more noticeable on the right. Renee sign is negative. There is no calf tenderness. Good distal pulses. Skin: No abnormalities noted of the exposed skin. Neurologic: Awake, alert, fully oriented. Neurologic exam is nonfocal. Const: Vital Signs, click to edit/add: Vital Signs - 24 hr 12/01/23 21:10 12/01/23 22:55 12/01/23 23:00 Temperature 97.6 F Pulse Rate [Pulse Oximeter] 76 78 78 Respiratory Rate 16 16 16 Blood Pressure [Ri ght Upper Arm] 115/73 120/71 120/71 Pulse Oximetry 99 98 98 Oxygen Delivery Me thod Room Air Room Air Room Air Course Course ED Course: Patient was seen and examined. D-dimer was drawn and is positive. We discussed that this is very common in and . But we are hopeful that we could avoid calling in someone for an ultrasound. Unfortunately the D-dimer is elevated. An maintenance department technician we called in to do a venous ultrasound of the right leg. Reevaluation(s) Reevaluation #1: Ultrasound of the right leg is negative for DVT. Vital Signs Vital signs: Initial Vital Signs Temperature 97.6 F 12/01/23 21:10 Temperature Source Temporal Artery Scan 12/01/23 21:10 Pulse Rate 76 12/01/23 21:10 Respiratory Rate 16 12/01/23 21:10 Blood Pressure 115/73 12/01/23 21:10 Blood Pressure Mean 87 12/01/23 21:10 Blood Pressure Position Supine 12/01/23 21:10 Pulse Oximetry 99 12/01/23 21:10 Oxygen Delivery Method Room Air 12/01/23 21:10 Vital Signs Temperature 97.6 F 12/01/23 21:10 Pulse Rate 76 12/01/23 21:10 Respiratory Rate 16 12/01/23 21:10 Blood Pressure 115/73 12/01/23 21:10 Pulse Oximetry 99 12/01/23 21:10 Oxygen Delivery Method Room Air 12/01/23 21:10 Temperature 97.6 F 12/01/23 21:10 Pulse Rate 78 12/01/23 23:00 Respiratory Rate 16 12/01/23 23:00 Blood Pressure 120/71 12/01/23 23:00 Pulse Oximetry 98 12/01/23 23:00 Oxygen Delivery Method Room Air 12/01/23 23:00 Medical Decision Making Lab Data Labs: Lab Results 12/01/23 Range/Units 21:51 D-Dimer Quant (PE/DVT) 2.10 H (0.00-0.50) ug/ml Discharge Plan Discharge Clinical Impression: edema Patient Disposition: Home, Self-Care Condition: Stable Additional Instructions: Avoid salt. Stay hydrated. Elevate your legs. Wear compression stockings bilaterally. Follow-up with your PCP if the edema does not improve. Prescriptions: No Action ferrous sulfate 325 mg (65 mg iron) Tablet 325 mg PO DAILYWM Qty: 30 0RF docusate sodium 100 mg Capsule 100 mg PO DAILY Qty: 90 2RF ibuprofen 600 mg Tablet 600 mg PO Q6H PRN (Reason: Pain) Qty: 60 0RF oxycodone 5 mg Tablet 5 - 10 mg PO Q4H PRN (Reason: Pain) Qty: 10 0RF Follow Up/Referrals: Provider,Not a Local [Primary Care Provider] - Stand Alone Forms: [employer] Info Instructions
== END 2023-12-01 23:35 | disposition home or self-care (01) ==
PROVIDERS: Emergency Provider Family Medicine
DX: R60.0 Localized edema (principal); O99.893 Other specified diseases and conditions complicating puerperium
CPT/HCPCS: 36415; 85379; 93971; 99282; 99283

== ENCOUNTER 2024-07-14 16:03 | Emergency (ER) | payer MEDICAID, SELFPAY ==
--- OUTSIDE RECORDS SUMMARY | 2024-07-14 16:05 | XMS_ITS | Patient Health Record ---
Author Organization [facility] Address [address] [place] [address] Care Team Providers Care Gm Mobile Name Role Phone None, No PCP Primary Care Provider Phill Mederos Unavailable [phone] Allergies No Known Allergies Reason For Referral No Information Social History Tobacco Use: Social History Observation Description Date Details (start date - stop date) Never Smoker NA - NA Tobacco Use/Smoking Question Answer Notes Are you a nonsmoker Problems Problem Type SNOMED Code ICD Code Onset Dates Problem Status W/U Status Risk Notes Problem Anovulation ([id number]) Anovulation (N97.0) Active confirmed Plan Of Treatment No Information Insurance Providers Payer Name Payer Address Payer Phone Subscriber Number Group Number Insured Name Patient Relationship to Insured Coverage Start Date Coverage End Date [employer] 2021 MARIA E (CLIENT bill) [address] [place], [place] [id number] Rosaline Parker Self - patient is the insured Medical (General) History Surgical History Surgery Date(Month/Year) section 2018
[2024-07-14 16:12] VITALS: BP 122/76; PULSE 79; RESP 18; TEMP 37.1; O2SAT 98; BMI 29.0
--- NOTE | 2024-07-14 16:24 | ED.GENADULT ---
HPI - General Adult General Chief complaint: Skin/Abscess/Foreign Body Stated complaint: swelling in bottom left jaw Time Seen by Provider: 07/14/24 16:08 History of Present Illness HPI narrative: reports that she developed left lower jaw?tooth pain last night. does has many broken and some missing teeth. has not been to a dentist for over 10 years. noticed the swelling today and this is enlarging as the day progresses. this is now the size of a golf ball. denies fever. denies feeling achy or ill. is here with and young 7- month-old daughter. 28-year-old young woman presenting to the emergency department with concern of swelling to her left jaw. And increasing tooth pain last night and subsequent swelling. Notes a history of dental problems. Has been looking with [employer] insurance as to what clinics might be covered for her. Has not had a fever. No drainage. Treating with acetaminophen at this point. Anticipating dental follow-up in knowing that she is probably going to need something, referring to an antibiotic, before dental would address which is prompting visit here to the emergency department. No trauma. Related Data Previous Rx's ?Medication ?Instructions ?Recorded docusate sodium 100 mg capsule 100 mg PO DAILY #90 caps 11/28/23 ferrous sulfate 325 mg (65 mg 325 mg PO DAILYWM #30 tabs 11/28/23 iron) tablet ibuprofen 600 mg tablet 600 mg PO Q6H PRN Pain #60 tabs 11/28/23 oxycodone 5 mg tablet 5 - 10 mg (1 - 2 x 5 mg) PO Q4H 11/28/23 PRN Pain #10 tabs Allergies Allergy/AdvReac Type Severity Reaction Status Date / Time No Known Drug Allergies Allergy Verified 07/14/24 16:12 Review of Systems Status of ROS: Reports: 6 or more systems reviewed and unremarkable except as noted in History and below PFSH PFSH Surgical History Hx of section ?Z98.891 - History of uterine scar from previous surgery (ICD-10) Social History Narrative: Lives in [facility] with and son. SOCIAL? ? Education: Senior in high school, did not graduate. ? ? Work: assistant head cashier? ? Partner: Eliu, , java development team lead ? ? Lives with: Eliu, son. Her brother rents the downstairs. Pets: 2 cats, dogs? ? Abuse: Denies past. Unable to assess current, partner present? ? Special Diet: Denies? ? Ok with a blood transfusion: yes? ? Culture or yarsani beliefs: denies? RISK FACTORS? ? Exercise Times/wk: denies? ? Depression/Anxiety: denies? ? Previous Treatments NA Therapy NA PATRICIA: 7 PHQ 9: 6? ? Seat Belt Use: Routinely ? Smoking: Denies past/present? ? Alcohol/day: Denies while ? ? Caffeine: denies? ? Drug Use: Denies past/present? What is your current living situation?: I presently have a place to live Problems where you live: no known problems In the past 12 months, utilities in danger of being shut off: no In past 12 months, lack of transportation kept you from medical appts, meetings, work, or getting things needed for daily living: no In the past 12 mos, have been you worried that your food would run out before you had money to buy more?: never true In the past 12 mos, the food you bought just didn't last and you didn't have money to buy more?: never true Smoking Status: Former smoker Do you use any of these nicotine containing products: None Second hand tobacco smoke exposure: No How often do you have a drink containing alcohol: never How often do you have six or more drinks on one occasion: Never AUDIT-C Alcohol total score: 0 Non-prescribed substance use: denies use How often does anyone, including family, friends and others, physically hurt you: never How often does anyone, including family, friends and others, insult or talk down to you: never How often does anyone, including family, friends and others, threaten you with harm: never How often does anyone, including family, friends and others, scream or curse at you: never service: No Exam Narrative: Exam Narrative: Pleasant. NAD. Really swollen left lower mid mandible. Breathing easily. Neck is supple without lymphadenopathy. Oropharynx with various areas of dental decay. Area in question left lower jaw shows a larger erosion to the gum base it. Mild swelling of the gums. The swelling is soft externally and I do not appreciate any clear area to attempt drainage. Const: Vital Signs, click to edit/add: Vital Signs - 24 hr 07/14/24 16:12 Temperature 98.7 F Pulse Rate [Pulse Oximeter] 79 Respiratory Rate 18 Blood Pressure [Ri ght Upper Arm] 122/76 Pulse Oximetry 98 Oxygen Delivery Me thod Room Air Documenting provider has reviewed patient's vital signs: yes Course Vital Signs Vital signs: Initial Vital Signs Temperature 98.7 F 07/14/24 16:12 Temperature Source Temporal Artery Scan 07/14/24 16:12 Pulse Rate 79 07/14/24 16:12 Pulse Rhythm Regular 07/14/24 16:12 Respiratory Rate 18 07/14/24 16:12 Blood Pressure 122/76 07/14/24 16:12 Blood Pressure Mean 91 07/14/24 16:12 Blood Pressure Position Semi-Fowlers 07/14/24 16:12 Pulse Oximetry 98 07/14/24 16:12 Oxygen Delivery Method Room Air 07/14/24 16:12 Vital Signs Temperature 98.7 F 07/14/24 16:12 Pulse Rate 79 07/14/24 16:12 Respiratory Rate 18 07/14/24 16:12 Blood Pressure 122/76 07/14/24 16:12 Pulse Oximetry 98 07/14/24 16:12 Oxygen Delivery Method Room Air 07/14/24 16:12 Temperature 98.7 F 07/14/24 16:12 Pulse Rate 79 07/14/24 16:12 Respiratory Rate 18 07/14/24 16:12 Blood Pressure 122/76 07/14/24 16:12 Pulse Oximetry 98 07/14/24 16:12 Oxygen Delivery Method Room Air 07/14/24 16:12 Medical Decision Making MDM Narrative Medical decision making narrative: Presumably dental abscess and more soft tissue reactive swelling. I certainly has dental decay, caries. Has been searching [facility] for follow-up as evidenced by her phone. Discussed needs for pain management. Did offer dental anesthetic injection but she is rather nervous about that. For patient discharge plan for further discussion Medical Records Medical records reviewed: Yes I reviewed the patient's medical records Discharge Plan Discharge Clinical Impression: Dental erosion, Mandibular swelling, Pain, dental Patient Disposition: Home w/ Parent or Adult Condition: Stable Additional Instructions: Can continue with your ibuprofen up to 800 mg per dose and/or acetaminophen to 1000 mg per dose, hot packs, cold packs. Will be prescribing penicillin and Percocet from [facility] as discussed. Keep in mind that each tablet of Percocet contains 325 mg of acetaminophen. Take the penicillin for 8 days. Please follow-up with your dental clinic as soon as possible or consider alternatives on the dental list as provided. Be seen for marked increase in swelling or redness, uncontrolled pain, fever. Prescriptions: No Action ferrous sulfate 325 mg (65 mg iron) Tablet 325 mg PO DAILYWM Qty: 30 0RF docusate sodium 100 mg Capsule 100 mg PO DAILY Qty: 90 2RF ibuprofen 600 mg Tablet 600 mg PO Q6H PRN (Reason: Pain) Qty: 60 0RF oxycodone 5 mg Tablet 5 - 10 mg PO Q4H PRN (Reason: Pain) Qty: 10 0RF Follow Up/Referrals: Provider,Not a Local [Primary Care Provider] - Stand Alone Forms: [employer] Info Instructions
== END 2024-07-14 16:57 | disposition home or self-care (01) ==
LOC: ED 16:51
PROVIDERS: Emergency Provider Family Medicine
DX: K03.2 Erosion of teeth (principal); M27.2 Inflammatory conditions of jaws
CPT/HCPCS: 99283